=== PATIENT | male | born 2000 | race Caucasian/White ===

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

== ENCOUNTER 2022-05-28 20:14 | Emergency (ER) | payer OTHER ==
[2022-05-28 20:40] LABS: HEMOGLOBIN 12.8 gm/dl (14.0-17.5); RED BLOOD COUNT 4.22 M/UL (4.20-5.50); WHITE BLOOD COUNT 11.5 K/UL (4.5-11.0)
[2022-05-28 21:17] LABS: BUN/CREATININE RATIO 20 (0-10)
== END 2022-05-28 22:15 | disposition left against medical advice (07) ==
LOC: ER1 20:14
PROVIDERS: Student in an Organized Health Care Education/Training Program
DX: R55 Syncope and collapse (principal); F17.210 Nicotine dependence, cigarettes, uncomplicated; Z88.5 Allergy status to narcotic agent
CPT/HCPCS: 71045; 80053; 82550; 82553; 84484; 85025; 93005; 99281